=== PATIENT | male | born 1995 | race African-American/Black ===

== ENCOUNTER 2016-11-10 23:39 | Emergency (ER) | payer MEDICAID ==
[~2016-11-10] VITALS: Ht 182.9 cm; Wt 75.7 kg
[2016-11-10] MEDS ORDERED: NKM (23:46)
[2016-11-10 23:48] VITALS: BP 131/72
[2016-11-11] MEDS ORDERED: Bacitracin Oint UD TOPIC ONE
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
[2016-11-11 00:33] LABS: BASOPHILS % (AUTO) 0.8 % (0.0-2.0); EOSINOPHILS % (AUTO) 1.7 % (0.0-3.0); LYMPHOCYTES % (AUTO) 15.4 % (20.0-45.0); MEAN CORPUSCULAR HEMOGLOBIN 30.9 PG (27.0-31.0); MEAN CORPUSCULAR HGB CONC 33.8 G/DL (32.0-36.0); MEAN CORPUSCULAR VOLUME 91 FL (80-99); MEAN PLATELET VOLUME 7.8 FL (6.5-10.1); MONOCYTES % (AUTO) 7.6 % (1.0-10.0); NEUTROPHILS % (AUTO) 74.6 % (45.0-75.0); PLATELET COUNT 199 K/UL (150-450); RED BLOOD COUNT 5.21 M/UL (4.70-6.10); RED CELL DISTRIBUTION WIDTH 12.2 % (11.6-14.8); WHITE BLOOD COUNT 9.5 K/UL (4.8-10.8)
[2016-11-11 00:40] LABS: ALANINE AMINOTRANSFERASE 19 U/L (3-41); ALBUMIN/GLOBULIN RATIO 1.7 (1.0-2.7); ANION GAP 11 (5-15); ASPARTATE AMINO TRANSFERASE 22 U/L (5-40); CALCIUM 9.4 mg/dL (8.6-10.2); CARBON DIOXIDE 28 mEQ/L (20-30); CHLORIDE 103 mEQ/L (98-107); CREATININE 1.1 mg/dL (0.7-1.2); GLOMERULAR FILTRATION RATE > 60 mL/min (>60); HEMOLYSIS 16; LIPASE 12 U/L (< 60); POTASSIUM 3.5 mEQ/L (3.4-4.9); SODIUM 142 mEQ/L (135-145); TOTAL PROTEIN 6.5 g/dL (6.6-8.7)
[2016-11-11] MEDS ORDERED: ZOFRAN ODT4 MG ORAL (03:03)
[2016-11-11] MEDS ORDERED: PEPCID20 MG ORAL (03:03)
[2016-11-11] MEDS ORDERED: BACITRACIN15 GM TOPIC (03:03)
[2016-11-11 03:14] VITALS: BP 128/76
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
== END 2016-11-11 03:14 | disposition home or self-care (01) ==
LOC: EMR 23:55
DX: R11.10 Vomiting, unspecified (principal); E86.0 Dehydration; S81.811A Laceration without foreign body, right lower leg, initial encounter; W45.8XXA Other foreign body or object entering through skin, initial encounter; Y92.89 Other specified places as the place of occurrence of the external cause; F17.200 Nicotine dependence, unspecified, uncomplicated
CPT/HCPCS: 12031; 36415; 73590; 80053; 83690; 85025; 96361; 96374; 96375; 99284; J2405; Z7502; 96360